=== PATIENT | male | born 1975 | race Caucasian/White ===

== ENCOUNTER → 2016-10-01 | Outpatient (CLI) | payer BC, OTHER ==
[~2016-10-01] MED LIST: GLC/500 PO; HYDR-5688 PO; LISI-725 PO; NVLGI/PEN SC; NVLGIPEN SC
--- NOTE | 2016-10-01 08:27 | DIAGNOSTIC IMAGING REPORT ---
CT OF THE CHEST WITHOUT IV CONTRAST CLINICAL HISTORY: PULMONARY NODULE PULMONARY NODULE COMPARISON STUDY: CT scan of the abdomen and pelvis dated 08/28/2015 CT DOSE: 477.31 mGycm TECHNIQUE: CT of the thorax was performed from the thoracic inlet to the lung bases. Images are reviewed in the axial, sagittal, and coronal planes. IV contrast was not administered for this examination. FINDINGS: Thyroid: Imaged portions of the thyroid gland are normal in appearance. Thoracic aorta: The thoracic aorta is normal in course and caliber, noting standard 3 vessel arch anatomy. Heart: The heart is normal in size. There are coronary artery calcifications present. Lungs and pleural spaces: No pleural effusions are visualized. There is no focal pulmonary consolidation. There is interval decrease in the size of the left lower lobe pulmonary nodule which currently measures 3.8 mm. Mediastinum: There is no mediastinal lymphadenopathy. Hayde: There is no evidence of pathologic adenopathy given the limitations of a noncontrast study. Axilla: There is no evidence of pathologic adenopathy. Upper abdomen: There are postsurgical changes of a gastric bypass. Skeletal structures: There are no lytic or blastic osseous lesions. IMPRESSION: 1. Interval decrease in the size of the left lower lobe pulmonary nodule which currently measures 3.8 mm. No further follow-up is indicated. 2. No evidence of pathologic adenopathy Electronically signed by: Aquilino Amor M.D. 10/01/2016 8:26 AM Dictated Date/Time: 10/01/2016 8:20 AM
== END | disposition home or self-care (01) ==
LOC: C.CTS 08:06
PROVIDERS: ATTEND Family Medicine
DX: R91.1 Solitary pulmonary nodule (principal)